=== PATIENT | male | born 2000 | race Two or more races ===

== ENCOUNTER 2024-06-07 11:16 | Outpatient (CLI) | payer OTHER | END 2024-06-07 11:19 | disposition home or self-care (01) | LOC: SONOGRAMA 11:16 | PROVIDERS: ATTEND Family Medicine Geriatric Medicine | DX: S86.011A Strain of right Achilles tendon, initial encounter (principal); M79.671 Pain in right foot ==

== ENCOUNTER → 2024-12-03 | Emergency (ER) | payer OTHER | END | disposition left against medical advice (07) | LOC: ER 10:13 | DX: Z53.21 Procedure and treatment not carried out due to patient leaving prior to being seen by health care provider (principal) ==